=== PATIENT | female | born 1955 ===

== ENCOUNTER 2018-10-05 10:19 | Day surgery (SDC) | payer OTHER ==
[~2018-10-05] VITALS: Ht 172.7 cm; Wt 95.4 kg
[2018-10-05 10:55] VITALS: BP 176/102
[2018-10-05] MEDS ORDERED: SODIUM CHLORIDE 0.9% 1,000 ML IV SCH (11:09)
[2018-10-05] MEDS ORDERED: DELTASONE PO (11:31)
[2018-10-05] MEDS ORDERED: CARVEDILOL PO (11:31)
[2018-10-05] MEDS ORDERED: LANTUS SQ (11:31)
[2018-10-05] MEDS ORDERED: [UNRECOGNIZED DRUG - OTHER] PO (11:31)
[2018-10-05] MEDS ORDERED: DRISDOL (11:31)
[2018-10-05] MEDS ORDERED: MAGN500T PO (11:32)
[2018-10-05] MEDS ORDERED: AMLO10TA4 PO (11:32)
[2018-10-05] MEDS ORDERED: ATOR40TA78 PO (11:32)
[2018-10-05] MEDS ORDERED: THERAGRAM (11:32)
[2018-10-05] MEDS ORDERED: LEVOTHYROXINE PO (11:32)
[2018-10-05 11:52] LABS: INTERNATIONAL NORMALIZED RATIO 0.93 (0.93-1.1); PROTHROMBIN TIME 9.9 Seconds (9.6-11.5)
[2018-10-05] MEDS ORDERED: MIDAZOLAM 1 MG/ML, 2ML ONE (12:42)
[2018-10-05] MEDS ORDERED: FENTANYL PF 100 MCG/2ML ONE (12:42)
[2018-10-05] MEDS ORDERED: ACETAMINOPHEN 325 MG TABLET PO PRN (13:00)
[2018-10-05] MEDS ORDERED: METOPROLOL 1 MG/ML, 5ML IV PRN (13:00)
[2018-10-05] MEDS ORDERED: FENTANYL PF 100 MCG/2ML IV PRN (13:00)
[2018-10-05] MEDS ORDERED: MIDAZOLAM 1 MG/ML, 2ML IV PRN (13:00)
[2018-10-05] MEDS ORDERED: PROMETHAZINE 25 MG/ML, 1ML IV PRN (13:00)
[2018-10-05] MEDS ORDERED: OXYcodone 5 MG/5 ML ORAL.SOL UDC PO PRN (13:00)
[2018-10-05] MEDS ORDERED: ALBUTEROL/IPRATROPIUM 2.5MG/0.5MG, 3 ML NPPB PRN (13:00)
[2018-10-05] MEDS ORDERED: ONDANSETRON 2MG/ML, 2ML IV PRN (13:00)
[2018-10-05] MEDS ORDERED: HYDROmorphone 2 MG/ML, 1ML IVPush PRN (13:00)
[2018-10-05] MEDS ORDERED: PHENYLEPHRINE 10 MG/ML ONE (13:21)
[2018-10-05] MEDS ORDERED: HEPARIN 1,000 UNITS/ML, 30ML ONE (13:21)
[2018-10-05] MEDS ORDERED: PROTAMINE SULFATE 10 MG/ML, 5ML ONE (13:21)
[2018-10-05] MEDS ORDERED: DEXAMETHASONE 4 MG/ML, 1ML ONE (13:45)
[2018-10-05] MEDS ORDERED: CEFAZOLIN 1,000 MG ONE (13:45)
[2018-10-05] MEDS ORDERED: PROPOFOL 10 MG/ML, 20ML ONE (13:45)
[2018-10-05] MEDS ORDERED: ONDANSETRON 2MG/ML, 2ML ONE (13:45)
[2018-10-05] MEDS ORDERED: hydrALAzine 20 MG/ML, 1ML ONE (14:30)
[2018-10-05] MEDS: hydrALAzine 20 MG/ML, 1ML IV PRN ×2 (14:30→14:54)
[2018-10-05] MEDS ORDERED: OXYcodone 5 MG/5 ML ORAL.SOL UDC ONE (14:34)
[2018-10-05] MEDS ORDERED: METOPROLOL 1 MG/ML, 5ML ONE (14:45)
== END 2018-10-05 17:30 | disposition home or self-care (01) ==
LOC: OUT 10:19
PROVIDERS: ATTEND Surgery Vascular Surgery
DX: E11.22 Type 2 diabetes mellitus with diabetic chronic kidney disease (principal); I12.0 Hypertensive chronic kidney disease with stage 5 chronic kidney disease or end stage renal disease; N18.6 End stage renal disease; E78.5 Hyperlipidemia, unspecified; Z79.899 Other long term (current) drug therapy; Z98.890 Other specified postprocedural states; Z79.4 Long term (current) use of insulin
CPT/HCPCS: 36415; 36821; 80047; 82962; 85610; 93005; J0360; J0690; J1100; J1644; J2250; J2370; J2405; J2704; J2720; J3010; J7030

== ENCOUNTER 2018-12-24 09:45 | Day surgery (SDC) | payer BC, OTHER ==
[~2018-12-24] VITALS: Ht 172.7 cm; Wt 97.6 kg
[~2018-12-24 09:45] MED LIST: AMLO10TA4 PO; ATOR40TA78 PO; CARVEDILOL PO; DELTASONE PO; DRISDOL; LANTUS SQ; LEVOTHYROXINE PO; MAGN500T PO; THERAGRAM; [UNRECOGNIZED DRUG - OTHER] PO
[2018-12-24] MEDS ORDERED: SODIUM CHLORIDE 0.9% 1,000 ML IV SCH (10:11)
[2018-12-24] MEDS ORDERED: PRED10TA PO (10:48)
[2018-12-24] MEDS ORDERED: LEVO50TA5 PO (10:48)
[2018-12-24] MEDS ORDERED: ATOR40TA78 PO (10:48)
[2018-12-24] MEDS ORDERED: MAGN500T PO (10:48)
[2018-12-24] MEDS ORDERED: INSU100C5 SQ-INSULIN (10:48)
[2018-12-24] MEDS ORDERED: ASPI-496 PO (10:48)
[2018-12-24] MEDS ORDERED: INSU100V8 SQ (10:48)
[2018-12-24] MEDS ORDERED: FOLI0.8T35 PO (10:48)
[2018-12-24] MEDS ORDERED: CARV12.543 PO (10:48)
[2018-12-24 10:58] VITALS: BP 147/86
[2018-12-24] MEDS ORDERED: INSULIN SINGLE DOSE, ER SQ-INSULIN ONE (11:46)
[2018-12-24] MEDS ORDERED: INSULIN REGULAR 100 UNITS/ML, 3ML VIAL SQ-INSULIN ONE (12:00)
[2018-12-24] MEDS ORDERED: BUPIVACAINE/PF 0.5% ONE (12:15)
[2018-12-24] MEDS ORDERED: PROTAMINE SULFATE 10 MG/ML, 5ML ONE (12:15)
[2018-12-24] MEDS ORDERED: HEPARIN 1,000 UNITS/ML, 30ML ONE (12:15)
[2018-12-24] MEDS ORDERED: HEPARIN 5,000 UNITS/ML, 1ML ONE (12:15)
[2018-12-24] MEDS ORDERED: THROMBIN 20,000 UNIT VIAL TP ONE (12:16)
[2018-12-24] MEDS ORDERED: MIDAZOLAM 1 MG/ML, 2ML ONE (12:38)
[2018-12-24] MEDS ORDERED: FENTANYL PF 100 MCG/2ML ONE (12:38)
[2018-12-24] MEDS ORDERED: PROPOFOL 10 MG/ML, 20ML ONE (12:39)
[2018-12-24] MEDS ORDERED: CEFAZOLIN 1,000 MG ONE (12:39)
[2018-12-24] MEDS ORDERED: ONDANSETRON 2MG/ML, 2ML ONE (12:39)
[2018-12-24] MEDS ORDERED: ONDANSETRON 2MG/ML, 2ML IV PRN (13:30)
[2018-12-24] MEDS ORDERED: FENTANYL PF 100 MCG/2ML IV PRN (13:30)
[2018-12-24] MEDS ORDERED: HYDROmorphone 2 MG/ML, 1ML IVPush PRN (13:30)
== END 2018-12-24 17:35 | disposition home or self-care (01) ==
LOC: OUT 09:45 → MERGE 14:30 → OUT 17:35
PROVIDERS: ATTEND Surgery Vascular Surgery
DX: T82.590A Other mechanical complication of surgically created arteriovenous fistula, initial encounter (principal); E11.22 Type 2 diabetes mellitus with diabetic chronic kidney disease; I12.0 Hypertensive chronic kidney disease with stage 5 chronic kidney disease or end stage renal disease; N18.6 End stage renal disease; E03.9 Hypothyroidism, unspecified; Z79.84 Long term (current) use of oral hypoglycemic drugs; Y83.8 Other surgical procedures as the cause of abnormal reaction of the patient, or of later complication, without mention of misadventure at the time of the procedure; Y92.89 Other specified places as the place of occurrence of the external cause
CPT/HCPCS: 36415; 36832; 80047; 82962; J0690; J1644; J2250; J2405; J2704; J3010; J3490; J7030; J2720